=== PATIENT | female | born 1965 | race Caucasian/White ===

== ENCOUNTER 2021-11-15 16:04 | Emergency (ER) | payer OTHER ==
[2021-11-15 16:26] VITALS: O2SAT 95
[2021-11-15] MEDS ORDERED: XYLOCAINE 1% HCL 20 ML MDV IJ ONE (17:00)
[2021-11-15] MEDS ORDERED: XYLOCAINE 1% HCL 20 ML MDV ONE (17:01)
[2021-11-15] MEDS ORDERED: Adacel Vial IM ONE ×2 (17:30→17:32)
--- NOTE | 2021-11-15 17:31 | ERPHSYRPT ---
- History of Present Illness Source: patient Exam Limitations: no limitations Patient Subjective Stated Complaint: States she was cutting a chicken a sliced her L hand pinky Triage Nursing Assessment: Patient 2 cm long laceration cleaned in hibicleanse and water Physician History: Avulsion per kitchen knife while cutting chicken at home. Lac 2x1.5cm L Lateral 2nd digit. Pt needs Tdap. She is R handed. Occurred: just prior to arrival Method of Injury: incised Severity of Pain-Max: moderate Severity of Pain-Current: moderate Extremities Pain Location: 2nd finger: left Modifying Factors: Improves With: movement Associated Symptoms: none Allergies/Adverse Reactions: Sulfa (Sulfonamide Antibiotics) Allergy (Mild, Verified 11/15/21 16:29) hydrocodone Adverse Reaction (Mild, Verified 11/15/21 16:29) Hx Tetanus, Diphtheria Vaccination/Date Given: No Immunizations Up to Date: No Travel Risk - International Travel Have you traveled outside of the country in past 3 weeks: No - Coronavirus Screening Are you exhibiting any of the following symptoms?: No Close contact with a COVID-19 positive Pt in past 14-21 Days: No - Vaccine Status Have you recieved a Covid-19 vaccination: 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: [employer] - Vaccination Dates Date of 2cond Vaccination (if applicable): Aug 2020 - Review of Systems Constitutional: No Symptoms Eyes: No Symptoms Ears, Nose, & Throat: No Symptoms Respiratory: No Symptoms Cardiac: No Symptoms Abdominal/Gastrointestinal: No Symptoms Genitourinary Symptoms: No Symptoms Skin: No Symptoms Neurological: No Symptoms Psychological: No Symptoms Endocrine: No Symptoms Hematologic/Lymphatic: No Symptoms Immunological/Allergic: No Symptoms - Past Medical History Other Medical History: headaches, nerve pain, skeletal pain, neuropathy - Past Surgical History Past Surgical History: Yes Female Surgical History: Hysterectomy, Section Other Surgical History: neck surgery, appendectomy - Social History Smoking Status: Never smoker Exposure to second hand smoke: No Drug Use: none Patient Lives Alone: No Significant Family History: no pertinent family hx - Nursing Vital Signs Nursing Vital Signs: Initial Vital Signs Temperature 98 F 11/15/21 16:14 Pulse Rate 69 11/15/21 16:14 Respiratory Rate 18 11/15/21 16:14 O2 Sat by Pulse Oximetry 95 11/15/21 16:14 Pain Scale Pain Intensity 4 WNL - Physical Exam General Appearance: no apparent distress Eyes, Ears, Nose, Throat Exam: normal ENT inspection Neck Exam: normal inspection, non-tender, supple, full range of motion, No Brudzinski, No Kernig's, No meningismus, No carotid bruit Cardiovascular/Respiratory Exam: normal breath sounds, regular rate/rhythm, heart sounds normal Abdominal Exam: non-tender, soft Back Exam: normal inspection Shoulder Exam: normal inspection Elbow/Forearm Exam: normal inspection Wrist Exam: normal inspection Hand Exam: laceration (Avulsion Lateral aspect of L 2nd digit/Good distal capillary return and sensation/FROM) Neuro/Tendon Exam: normal sensation, normal motor functions, normal tendon functions, responds to pain, no evidence tendon injury Mental Status Exam: alert, oriented x 3, cooperative Skin Exam: normal color, warm, dry SpO2 Interpretation: normal SpO2: 95 O2 Delivery: Room Air Procedures - Laceration/Wound Repair Left Lateral Finger Wound Location: Left (L Lateral 2nd digit) Wound Length (cm): 2 Wound's Depth, Shape: flap Wound Explored: clean Irrigated: Yes (w Hibiclens sterilr water) Hibiclens Prep: Yes Anesthesia: digital block, 1% Lidocaine Volume Anesthetic (ccs): 4 Wound Repaired With: sutures Suture Size/Type: 4-0 (4.0 Ethilon x10) Number of Sutures: 10 Progress: 11/15/21 17:32 Flap L lateral 2nd digit/Between PIP-DIP/Not involving nail or nail bed - Course Nursing assessment & vital signs reviewed: Yes Ordered Tests: Active Orders 24 hr Category Date Time Status Wound Care STAT Care 11/15/21 17:00 Completed Medication Summary Discontinued Medications Generic Name Dose Route Start Last Admin Trade Name Sagrario PRN Reason Stop Dose Admin Diphtheria/Tetanus/Acell Pertussis 0.5 ml 11/15/21 17:30 11/15/21 17:33 Tdap --Diph,Pertuss(Acell),Tet Vac/Pf 0.5 Ml Vial IM 11/15/21 17:31 0.5 ml .ONCE ONE Administration Diphtheria/Tetanus/Acell Pertussis Confirm 11/15/21 17:32 Tdap --Diph,Pertuss(Acell),Tet Vac/Pf 0.5 Ml Vial Administered 11/15/21 17:33 Dose 0.5 ml IM .STK-MED ONE Lidocaine HCl 5 ml 11/15/21 17:00 11/15/21 17:01 Lidocaine Hcl 1% 20 Ml Mdv 20 Ml Ml IJ 11/15/21 17:01 5 ml STAT ONE Administration Lidocaine HCl Confirm 11/15/21 17:01 Lidocaine Hcl 1% 20 Ml Mdv 20 Ml Ml Administered 11/15/21 17:02 Dose 5 ml .ROUTE .STK-MED ONE - Progress Progress: improved Progress Note: 11/15/21 17:33 Pt advised that she might loose flap and that area would have to granulate in Counseled pt/family regarding: diagnosis, need for follow-up - Departure Departure Disposition: Home Clinical Impression: Finger laceration Condition: Stable Critical Care Time: No Referrals: GEETHA GIFFORD [Primary Care Provider] - Follow up/PCP as directed Instructions: Wound Care (DC), Laceration Repair With Stitches (DC) Additional Instructions: Keep laceration dry for 3 days, then wash gently 1-2 times a day with soap/water Sutures out in 10 days Watch for signs of infection-redness/increasing pain/pus/temperature greater than 100.5 Prescriptions: Cephalexin Mh 500 mg [Keflex 500 mg] 500 mg PO TID 7 Days #21 cap
[2021-11-15 17:36] VITALS: BP 138/79; PULSE 72
== END 2021-11-15 17:44 | disposition home or self-care (01) ==
LOC: ED 16:04
DX: S61.211A Laceration without foreign body of left index finger without damage to nail, initial encounter (principal); W26.0XXA Contact with knife, initial encounter; Y93.G1 Activity, food preparation and clean up; Y92.000 Kitchen of unspecified non-institutional (private) residence as the place of occurrence of the external cause; M79.645 Pain in left finger(s)
CPT/HCPCS: 12001; 90471; 90715; 96372; 99284